=== PATIENT | female | born 1980 | race Caucasian/White ===

== ENCOUNTER 2025-03-25 16:38 | Emergency (ER) | payer BC, SELFPAY ==
[2025-03-25 16:39] VITALS: BP 142/86
[2025-03-25 17:10] LABS: Hematocrit 43.0 % (37.0-47.0); Hemoglobin 14.2 g/dL (12.0-16.0); Mean Corp Hgb Conc. 33.0 g/dL (33.0-37.0); Mean Corpuscular Volume 94.1 fL (81.0-99.0); Nucleated Red Blood Cells % 0 %; Platelet Count 273 10^3/uL (130-400); Red Cell Dist. Width 12.6 % (11.5-14.5)
[2025-03-25 17:11] LABS: Urine Character Clear (Clear)
[2025-03-25 17:26] LABS: HCG, Serum Qualitative Screen Negative
[2025-03-25 17:29] LABS: Urine Red Blood Cell 0-2 /HPF (0-2)
[2025-03-25 17:32] LABS: ALT (SGPT) 20 U/L (0-35); AST (SGOT) 19 U/L (14-36); Albumin 4.5 g/dl (3.5-5.0); Alkaline Phosphatase 47 U/L (38-126); Blood Urea Nitrogen 12 mg/dl (7-17); Calcium 9.3 mg/dl (8.4-10.2); Carbon Dioxide 29 mmol/L (22-30); Chloride 103 mmol/L (98-107); Glucose 93 mg/dl (70-99); Potassium 3.7 mmol/L (3.5-5.1); Sodium 135 mmol/L (135-145); Total Protein 7.4 g/dl (6.3-8.2); eGFR > 60.00
[2025-03-25 19:06] VITALS: BP 118/82
--- NOTE | 2025-03-25 19:16 | ED.GENMED ---
Addendum entered and electronically signed by Valentin Tam PA-C 03/28/25 08:07:
Urine culture shows greater than 100,000 colony-forming units of gram-negative bacilli. On Keflex. Sensitivities pending
Original Note:
History of Present Illness
General
Chief Complaint: Vaginal Bleeding
Source: patient
Exam Limitations: none
Time Seen by Provider: 03/25/25 18:23
Nursing documentation reviewed up to this point in time: agreed with
History of Present Illness
History of Present Illness:
Patient to the emergency department for evaluation of vaginal bleeding. States symptoms started approximately 1 year ago. She reports having an episode of heavy vaginal bleeding during intercourse. States bleeding does not occur every time. She
reports 1 episode and then another episode 3 months later and then the latest episode was today. she denies any pain. She denies spontaneous vaginal bleeding at any other time. She reports her periods are regular and are unchanged. She brought
herself to the emergency department for evaluation. 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
Past History
Past History
ED Past Medical History: None
Review of Systems
Review of Systems
Allergies reviewed?: Yes
All Other Systems: ROS reviewed and negative except as documented in HPI and ROS
Constitutional: Reports no symptoms
EENT: Reports no symptoms
Respiratory: Reports no symptoms
Cardiac: Reports no symptoms
ABD/GI: Reports no symptoms
: Reports other (Vaginal bleeding with intercourse.)
Musculoskeletal: Reports no symptoms
Skin: Reports no symptoms
Neurological: Reports no symptoms
Psychiatric: Reports no symptoms
Phy Exam
General Physical Exam
General Presentation: well appearing and no apparent distress
General age: appears stated age
General Skin: warm and dry
General Habitus: normal
General Mental: alert
Gastrointestinal Exam
Gastrointestinal Exam: non tender, soft, no organomegaly, no pulsatile mass and non distended
Genitourinary Exam Female
Exam Female: no bleeding, no CMT, no lesions, no mass and no vaginal discharge
Visual exam of cervix: erythemia
Musculoskeletal Exam
Musculoskeletal Exam: full ROM and neuro vasc intact
Skin Exam
Skin Exam: normal color, warm/dry and no rash
Psychiatric Exam
Psychiatric Exam: normal mood/affect
Course
Orders/Labs/Results
Orders:
Orders
03/25/25 16:45
Test Result ONCE
03/25/25 17:01
Complete Blood Count/With Diff Urgent
Comprehensive Metabolic Panel Urgent
HCG, Serum Qualitative Screen Urgent
Comment: Notify provider if positive test present
Urinalysis Reflex To Culture Urgent
Date Specimen was Collected: 03/25/25
Time Specimen was Collected: 16:45
Urine Microscopic Reflex Cult Urgent
Urine Culture Urgent
CORBIN Source: U
Specimen Description:
Obtained by: Random
Date Specimen was Collected: 03/25/25
Time Specimen was Collected: 16:45
03/25/25 18:59
US Pelvis W Transvag Combined Urgent
Reason For Exam: abnormal bleeding
03/25/25 22:04
Cephalexin Monohydrate [Keflex] 500 mg .ROUTE .STK-MED ONE
03/25/25 22:06
Cephalexin Monohydrate [Keflex] 500 mg PO NOW STA
Abnormal Lab Results
03/25/25
17:01
MCH 31.1 H pg
(27.0-31.0)
Urine Nitrite (Reflex) Positive A
(Negative)
Leukocyte Esterase Rfl 2+ A
(Negative)
Urine Bacteria (Reflex) Moderate A
(Negative)
03/25/25 17:01
03/25/25 17:01
Vital Signs
Initial and Last Documented VS:
Initial Vital Signs
Temp Pulse Resp BP Pulse Ox
98.1 F 115 20 142/86 99
03/25/25 16:39 03/25/25 16:39 03/25/25 16:39 03/25/25 16:39 03/25/25 16:39
Last Documented Vital Signs
Temp Pulse Resp BP Pulse Ox
98.1 F 98 20 115/80 100
03/25/25 16:39 03/25/25 22:00 03/25/25 22:00 03/25/25 22:00 03/25/25 22:00
*Radiology
Radiology exam reviewed: radiology read reviewed
*Pulse Oximetry
SaO2: 99
Oxygen Mode of Delivery: Room air
Patient hypoxic: no
*Critical Care Note
Total Time (30-74mins, 75-104mins- exclusive of procedures): Not Applicable
Update Note
Update Note:
Patient to the emergency department with complaint of vaginal bleeding after intercourse. This has happened 3 times in the past year. She denies any pain. Physical exam without any evidence of trauma. No active vaginal bleeding. Cervix without
visible lesions but erythema is present. She was sent for ultrasound. No findings to explain her symptoms. Labs reviewed no concerning findings. Will discharge home. She was instructed that she will need to follow-up with gynecology for further
evaluation of her symptoms. She reports diagnosis of cervical dysplasia approximately 1 year ago. She has not had any follow-up for this. She is given the name and number for gynecology and she is agreeable to this plan. She was given
instructions on signs and symptoms to return to the emergency department and she is agreeable to this.
ED Attending Note
-
Portions of this chart may have been created with voice recognition software.� Occasional wrong word or��sound alike� substitutions may have occurred due to the inherent limitations of voice recognition software.
Discharge Plan
Departure
Patient Disposition: Home (Routine Discharge)
Date of Disposition: 03/25/25
Time of Disposition: 21:56
Patient with high blood pressure during this ER visit?: No
Condition: Good
Covid-19: Not Applicable
Discharge Problem:
Abnormal vaginal bleeding
Instructions: General
Prescriptions:
New
cephalexin 500 mg capsule
500 mg PO BID 7 Days Qty: 14 0RF
Referrals:
Socorro Saldaña MD [Active, Gynecology] - Call in 1-3 days for appt
UNKNOWN - PT DOES,NOT KNOW [Family Provider]
Interventions
Interventions:
*Risk Screen - Suicide Last Done: 03/25/25 16:39
*General Assessment Last Done: 03/25/25 16:39
*Neglect/Abuse Screening Last Done: 03/25/25 16:39
*ED- Fall Risk Assessment Last Done: 03/25/25 21:22
*ED COVID-19 Vaccine History Last Done: 03/25/25 21:22
*ED Influenza Vaccine History Last Done: 03/25/25 21:22
*Nursing Disposition Last Done: 03/25/25 22:16
ED-Female Genitourinary Assessment Last Done: 03/25/25 20:50
Discharge Date and Time
Discharge Date/Time: 03/25/25 22:19
Print Language: IRISH
[2025-03-25 22:00] VITALS: BP 115/80
[2025-03-25] MEDS: KEFLEX 500 MG PO (22:06)
== END 2025-03-25 22:19 | disposition home or self-care (01) ==
LOC: EMR 16:38
PROVIDERS: EMERGENCY PHYSICIAN Emergency Medicine
DX: N93.9 Abnormal uterine and vaginal bleeding, unspecified (principal)
CPT/HCPCS: 99284; 76830; 76856; 80053; 81003; 81015; 84703; 85025; 87077; 87086